=== PATIENT | female | born 1955 | race Caucasian/White ===

== ENCOUNTER → 2019-04-21 09:29 | Outpatient (CLI) | payer MEDICARE, OTHER, SELFPAY ==
--- NOTE | 2019-04-21 | DI.MG.S_ITS ---
BILATERAL DIGITAL SCREENING MAMMOGRAM 3D/2D WITH CAD: 04/21/2019 CLINICAL: Routine screening. Comparison is made to exams dated: 03/12/2018 mammogram, 12/23/2016 mammogram, and 01/02/2016 mammogram - [facility]. The tissue of both breasts is heterogeneously dense. This may lower the sensitivity of mammography. Current study was also evaluated with a Computer Aided Detection (CAD) system. No significant masses, calcifications, or other findings are seen in either breast. There has been no significant interval change. IMPRESSION: NEGATIVE There is no mammographic evidence of malignancy. A 1 year screening mammogram is recommended. This exam was interpreted at Station ID: [id number]. NOTE: For mammograms, a report in lay terms will be sent to the patient. Approximately 15% of breast malignancies will not be visualized mammographically. In the management of a palpable breast mass, a negative mammogram must not discourage biopsy of a clinically suspicious lesion. Electronically Signed By: Shena langford/alireza:04/21/2019 10:01:13 letter sent: Normal Exam ACR BI-RADS Category 1: Negative 3341F
== END ==
PROVIDERS: PCP Internal Medicine; Referring Provider Internal Medicine; Visit Provider Internal Medicine
DX: Z12.31 Encounter for screening mammogram for malignant neoplasm of breast (principal)
CPT/HCPCS: 77063; 77067

== ENCOUNTER 2019-10-23 20:24 | Emergency (ER) | payer MEDICARE, OTHER, SELFPAY ==
[2019-10-23 20:25] VITALS: BP 179/79; PULSE 75; RESP 14; TEMP 36.6; O2SAT 97; BMI 32.1
--- NOTE | 2019-10-23 20:35 | PC.NURSE ---
Pt arrives with paper towel/applying pressure to right index finger. Removed paper towels and laceration is on lower part of index finger, sub cutaneous tissue visible. 4x4 given to pt to replace paper towel. Pt able to move finger, reports some tingling present when pressure applied.
--- NOTE | 2019-10-23 20:43 | ED.WOUNDLAC ---
HPI - Wound/Laceration General Chief Complaint: Wound/Laceration Stated Complaint: cut her index finger right hand Time Seen by Provider: 10/23/19 20:37 Source: patient Mode of arrival: Ambulatory Limitations: no limitations History of Present Illness HPI narrative: 64-year-old female nonsmoker with noncontributory medical history presents with her in the chief complaint of an accidental laceration to the flexor surface of her right index finger just prior to arrival. She states there has been a fair amount of bleeding which she denies any numbness or weakness. She was handling a glass bowl when it shattered and lacerated her finger. She denies other injury. She denies any foreign body. She states her tetanus is current. Onset (ago): hour(s) Place: home Patient tetanus UTD: Yes Context: accidental Associated symptoms: pain Related Data Allergies Allergy/AdvReac Type Severity Reaction Status Date / Time No Known Drug Allergies Allergy Verified 10/23/19 20:29 Review of Systems Review of Systems Narrative: GENERAL: Denies chills, fatigue, malaise, fever, sweats. HEENT: Denies sinus pain, ear pain, sore throat, difficulty swallowing, dizziness. RESPIRATORY: Denies dyspnea, cough, wheezing, hemoptysis, sputum. CARDIOVASCULAR: Denies chest pain, palpitations, orthopnea, edema, GASTROINTESTINAL: Denies nausea, vomiting, abdominal pain, diarrhea, constipation, melena. : Denies dysuria, frequency, incontinence, hematuria, urinary retention. MUSCULOSKELETAL: denies weakness, joint pain, or bony pain SKIN: Admits to laceration Denies rash, skin lesions, or other NEUROLOGIC: Denies weakness, headache, numbness, change in speech, confusion, seizures, incoordination. PSYCHIATRIC: No concerning psychosocial issues. 12 point review of systems is negative except for those stated above Patient History Social History Smoking Status: Unknown if ever smoked Smoking Status: Unknown if ever smoked alcohol intake frequency: holidays/special occasions only Substance Use Type: does not use Exam Narrative Exam Narrative: GEN: AOx3 and in mild distress EYES: Pupils are equal, round, and reactive to light and accommodation. Extraoccular muscles are intact bilaterally. There is no subconjunctival hemorrhage or exudate. CHEST: Lungs are clear to auscultation bilaterally and free of wheezes, rales, or rhonchi. Heart rate is regular rhythm, there are no murmurs, clicks, rubs, or gallops. There is no chest wall tenderness. ABD: Abdomen is soft and nontender. There is no guarding or rebound. Bowel sounds are normal in all 4 quadrants. There is no mass or organomegaly. EXT: Full painless ROM of all extremities with no loss of sensation or strength. SKIN: 2.5 cm longitudinally oriented laceration the flexor surface of the right index finger. No loss of strength, no arterial component. Visualized in a bloodless field and no obvious tendon involvement noted. Otherwise Warm, pink, and dry. No erythema or rash Initial Vital Signs Initial Vital Signs: Vital Signs Temperature 97.9 F 10/23/19 20:25 Pulse Rate 75 10/23/19 20:25 Respiratory Rate 14 10/23/19 20:25 Blood Pressure 179/79 H 10/23/19 20:25 Pulse Oximetry 97 10/23/19 20:25 Procedures Laceration Repair Laceration 1: Side (If applicable): right Size (cm): 2.5 Description: linear Depth: simple, single layer Pre-repair: wound explored, irrigated extensively and deep structures intact Skin layer closed with: nylon Size (cm): 5-0 Number of sutures: 5 Technique: simple, interrupted Nerve Block Nerve Block 1: Time out performed: Yes Local Anesthetic: lidocaine 1% and with bicarb Amount of anesthesia used (mL): 4 Side: right Nerve Blocks: digital Procedure Successful: Yes Patient Tolerated Procedure: Well Complications: none Course Orders Ordered: Discontinued Medications Lidocaine/Sodium Bicarbonate (Buffered Lidocaine 10 Ml Syr) 10 ml INJ NOW ONE Stop: 10/23/19 20:50 Last Admin: 10/23/19 20:54 Dose: 10 ml Documented by: CAMILLE Vital Signs Vital signs: Vital Signs - 8 hr 10/23/19 20:25 10/23/19 21:49 Temperature 97.9 F Pulse Rate 75 86 Respiratory Rate 14 Blood Pressure 179/79 H Pulse Oximetry 97 99 Discharge Plan Departure Patient Disposition: Home Clinical Impression: Laceration of right index finger Qualifiers: Encounter type: initial encounter Damage to nail status: without damage Foreign body presence: without foreign body Qualified Code(s): S61.210A - Laceration without foreign body of right index finger without damage to nail, initial encounter Discharge Date/Time: 10/23/19 21:50 Instructions: DI for Laceration Repair Activity Restrictions/Additional Instructions: Please keep the wound clean and dry to the best of your ability. Please monitor for signs of infection such as redness to the skin or increasing pain. Have the sutures removed by your doctor in about 7 days. If you are unable to get into your doctor, we would be happy to remove the sutures in that same timeframe. Referrals: Brianna Raman [Primary Care Provider] -
[2019-10-23] MEDS: LIDO 1%/SOD BICARB 8.4% (10ML) 10 ML SYRINGE INJ (20:54)
[2019-10-23 21:49] VITALS: PULSE 86; O2SAT 99
== END 2019-10-23 21:50 | disposition home or self-care (01) ==
PROVIDERS: Emergency Provider Emergency Medicine; PCP Internal Medicine
DX: S61.210A Laceration without foreign body of right index finger without damage to nail, initial encounter (principal); W25.XXXA Contact with sharp glass, initial encounter
CPT/HCPCS: 12001; 64450; 99283

== ENCOUNTER → 2020-11-18 12:53 | Outpatient (CLI) | payer MEDICARE, OTHER, SELFPAY ==
--- NOTE | 2020-11-18 | DI.MG.S_ITS ---
BILATERAL DIGITAL SCREENING MAMMOGRAM 3D/2D WITH CAD: 11/18/2020 CLINICAL: Routine screening. Comparison is made to exams dated: 04/21/2019 mammogram - [facility], 03/12/2018 mammogram, and 12/23/2016 mammogram - [facility]. The tissue of both breasts is heterogeneously dense. This may lower the sensitivity of mammography. Current study was also evaluated with a Computer Aided Detection (CAD) system. No significant masses, calcifications, or other findings are seen in either breast. There has been no significant interval change. IMPRESSION: NEGATIVE There is no mammographic evidence of malignancy. A 1 year screening mammogram is recommended. This exam was interpreted at Station ID: [id number]. NOTE: For mammograms, a report in lay terms will be sent to the patient. Approximately 15% of breast malignancies will not be visualized mammographically. In the management of a palpable breast mass, a negative mammogram must not discourage biopsy of a clinically suspicious lesion. Electronically Signed By: Ad ang/alireza:11/20/2020 08:10:48 letter sent: Normal Exam ACR BI-RADS Category 1: Negative 3341F
== END ==
PROVIDERS: PCP Internal Medicine; Referring Provider Internal Medicine; Visit Provider Internal Medicine
DX: Z12.31 Encounter for screening mammogram for malignant neoplasm of breast (principal)
CPT/HCPCS: 77063; 77067

== ENCOUNTER → 2021-12-20 10:48 | Outpatient (CLI) | payer MEDICARE, OTHER, SELFPAY ==
--- NOTE | 2021-12-20 | DI.MG.S_ITS ---
BILATERAL DIGITAL SCREENING MAMMOGRAM 3D/2D WITH CAD: 12/20/2021 CLINICAL: Routine screening. Comparison is made to exams dated: 11/18/2020 mammogram, 04/21/2019 mammogram - [facility], and 03/12/2018 mammogram - [facility]. Both breasts are heterogeneously dense, which may obscure small masses (category c / 51-75% glandular tissue). Current study was also evaluated with a Computer Aided Detection (CAD) system. No significant masses, calcifications, or other findings are seen in either breast. There has been no significant interval change. IMPRESSION: NEGATIVE There is no mammographic evidence of malignancy. A 1 year screening mammogram is recommended. Based on the Tyrer Cuzick model (a risk assessment model) the patient's lifetime risk is 13.7% and her 10 year risk is 7.7%. According to the ACR, ACS, and NCCN guidelines, an annual breast MRI exam along with mammogram is recommended if the patient's lifetime risk is 20% or greater. This exam was interpreted at Station ID: [id number]. NOTE: For mammograms, a report in lay terms will be sent to the patient. Approximately 15% of breast malignancies will not be visualized mammographically. In the management of a palpable breast mass, a negative mammogram must not discourage biopsy of a clinically suspicious lesion. Electronically Signed By: Emmanuel Swain M.D., jr/alireza:12/20/2021 18:11:50 letter sent: Normal Exam ACR BI-RADS Category 1: Negative 3341F
== END ==
PROVIDERS: Referring Provider Internal Medicine; Visit Provider Internal Medicine
DX: Z12.31 Encounter for screening mammogram for malignant neoplasm of breast (principal)
CPT/HCPCS: 77063; 77067

== ENCOUNTER → 2023-02-24 11:39 | Outpatient (CLI) | payer MEDICARE, OTHER, SELFPAY ==
--- NOTE | 2023-02-24 11:41 | DI.MG.S_ITS ---
BILATERAL DIGITAL SCREENING MAMMOGRAM 3D/2D WITH CAD: 02/24/2023 CLINICAL: Routine screening. Comparison is made to exams dated: 12/20/2021 mammogram, 11/18/2020 mammogram, and 04/21/2019 mammogram - [facility]. Both breasts are heterogeneously dense, which may obscure small masses (category c / 51-75% glandular tissue). Current study was also evaluated with a Computer Aided Detection (CAD) system. There are benign calcifications in both breasts. No significant masses, calcifications, or other findings are seen in either breast. There has been no significant interval change. IMPRESSION: BENIGN There is no mammographic evidence of malignancy. A 1 year screening mammogram is recommended. Based on the Tyrer Cuzick model (a risk assessment model) the patient's lifetime risk is 12.3% and her 10 year risk is 7.9%. According to the ACR, ACS, and NCCN guidelines, an annual breast MRI exam along with mammogram is recommended if the patient's lifetime risk is 20% or greater. This exam was interpreted at Station ID: [id number]. NOTE: For mammograms, a report in lay terms will be sent to the patient. Approximately 15% of breast malignancies will not be visualized mammographically. In the management of a palpable breast mass, a negative mammogram must not discourage biopsy of a clinically suspicious lesion. Electronically Signed By: Shena langford/alireza:02/24/2023 14:45:44 letter sent: Normal Exam ACR BI-RADS Category 2: Benign Finding(s) 3342F
== END ==
PROVIDERS: Referring Provider Internal Medicine; Visit Provider Internal Medicine
DX: Z12.31 Encounter for screening mammogram for malignant neoplasm of breast (principal); R92.333 Mammographic heterogeneous density, bilateral breasts
CPT/HCPCS: 77063; 77067

== ENCOUNTER → 2023-08-19 | Outpatient (CLI) | payer MEDICARE, OTHER, SELFPAY ==
--- NOTE | 2023-08-19 14:57 | DI.MRI.S_ITS ---
PROCEDURE: MR KNEE RT WO CON INDICATIONS: Pain in right knee TECHNIQUE: Noncontrast sagittal PD fast spin echo and T2 fast spin echo with fat saturation, sagittal 3-D FLASH with fat saturation; coronal T1 spin echo and PD fast spin echo with fat saturation, and axial PD fast spin echo with fat saturation through the knee. COMPARISON: [facility], CR, XR KNEE ARTHRITIC SERIES RT, 08/14/2023, 11:04. FINDINGS: Image quality: Excellent. Menisci: There is a radial tear of the lateral meniscus at the posterior horn/posterior body junction (8/20). The medial meniscus is intact. The posterior root attachment are within normal limits. Cruciate ligaments: The anterior and posterior cruciate ligaments appear intact. Medial structures: The medial collateral ligament appears intact. The posterior oblique ligament, semimembranosus tendon insertions, oblique popliteal ligament, and meniscocapsular junction appear intact. Visualized portions of the pes anserinus tendons appear normal. No abnormal bursal fluid. Lateral structures: The lateral collateral ligament, long and short heads of the biceps femoris tendon appear intact. The popliteus tendon appears normal; the popliteofibular ligament appears intact. The posterosuperior and anteroinferior popliteomeniscal fascicles appear intact. The arcuate and fabellofibular ligaments appear intact, on either side of the lateral inferior geniculate artery. Iliotibial band appears normal. Anterior structures: There is mild quadriceps tendinosis. The patellar tendon is preserved. Patellar alignment is normal. No femoral trochlear dysplasia. No edema in the infrapatellar fat pad. Bones and cartilage: The marrow signal is within normal limits. No acute fracture or dislocation. Areas of near full thickness cartilage loss are present in the weight-bearing medial compartment (8/19). Areas of partial thickness chondral loss are present in the lateral weight-bearing compartment (8/20). He resume near full-thickness chondral loss and delamination are present in the patellofemoral compartment, notably at the lateral aspect (3/11). Joint space: Mild tricompartmental joint space narrowing and osteophyte formation. Trace joint effusion. Moderate 7.4 cm multiloculated Gómez's cyst without evidence of leakage (5/24). No large intra-articular bodies. Other: Multiple varicose veins are present. IMPRESSION: 1. 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 2. Radial tear of the lateral meniscus at the posterior horn/posterior body junction. 3. Mild quadriceps tendinosis. Dictated by: Bhaskar Paul M.D. on 08/19/2023 at 17:10 Approved by: Bhaskar Paul M.D. on 08/19/2023 at 17:21
== END ==
PROVIDERS: Referring Provider Nurse Practitioner Family; Visit Provider Nurse Practitioner Family
DX: S83.281A Other tear of lateral meniscus, current injury, right knee, initial encounter (principal); M25.561 Pain in right knee
CPT/HCPCS: 73721

== ENCOUNTER → 2024-03-02 16:09 | Outpatient (CLI) | payer MEDICARE, OTHER, SELFPAY ==
--- NOTE | 2024-03-02 16:13 | DI.MG.S_ITS ---
BILATERAL DIGITAL SCREENING MAMMOGRAM 3D/2D WITH CAD: 03/02/2024 CLINICAL: Routine screening. Comparison is made to exams dated: 02/24/2023 mammogram, 12/20/2021 mammogram, and 11/18/2020 mammogram - [facility]. The breasts are heterogeneously dense, which may obscure small masses (category c / 51-75% glandular tissue). Current study was also evaluated with a Computer Aided Detection (CAD) system. There are benign calcifications in both breasts. No significant masses, calcifications, or other findings are seen in either breast. There has been no significant interval change. IMPRESSION: BENIGN There is no mammographic evidence of malignancy. A 1 year screening mammogram is recommended. Based on the Tyrer Cuzick model (a risk assessment model) the patient's lifetime risk is 11.7% and her 10 year risk is 8.1%. According to the ACR, ACS, and NCCN guidelines, an annual breast MRI exam along with mammogram is recommended if the patient's lifetime risk is 20% or greater. This exam was interpreted at Station ID: [id number]. NOTE: For mammograms, a report in lay terms will be sent to the patient. Approximately 15% of breast malignancies will not be visualized mammographically. In the management of a palpable breast mass, a negative mammogram must not discourage biopsy of a clinically suspicious lesion. Electronically Signed By: Guanakito sena/alireza:03/04/2024 14:43:17 letter sent: Normal Exam ACR BI-RADS Category 2: Benign
== END ==
DX: Z12.31 Encounter for screening mammogram for malignant neoplasm of breast (principal); R92.333 Mammographic heterogeneous density, bilateral breasts
CPT/HCPCS: 77063; 77067

== ENCOUNTER → 2024-03-12 12:52 | Outpatient (CLI) | payer MEDICARE, OTHER, SELFPAY ==
--- NOTE | 2024-03-12 12:53 | DI.RAD.S_ITS ---
PROCEDURE: XR DEXA AXIAL SKELETON INDICATIONS: OSTEOPOROSIS SCREENING COMPARISON: None. FINDINGS: Lumbar Spine: Bone mineral density 1.143 g/cm2, T score 0.9, previously 0. Left Femoral Neck: Bone mineral density 0.778 g/cm2, T score -0.6. Left Hip: Bone mineral density 0.961 g/cm2, T score 0.2, previously -0.7. Fracture Risk Calculation (when applicable): Not reported due to normal bone mineralization. (T score greater or equal to -1.0 to: NORMAL) (T score from -1.1 to -2.4: OSTEOPENIA) (T score less than or equal to -2.5: OSTEOPOROSIS) IMPRESSION: Normal bone mineralization. Follow-up guidelines as follows: Osteoporosis: Consider a repeat DEXA and Vertebral Fracture Assessment (VFA) exam in 2 years or sooner if medically necessary, to reassess this patient's status. Osteopenia: Consider a repeat DEXA in 2-3 years to reassess this patient's status, or if there is a new clinical indication. Normal: Consider a repeat DEXA in 5 years or sooner, or if there is a new clinical indication. All treatment decisions require clinical judgment and consideration of individual patient factors, including patient preferences, comorbidities, previous drug use, risk factors not captured in the FRAX model (e.g., frailty, falls, vitamin D deficiency, increased bone turnover, interval significant decline in bone density ) and possible under- or over-estimation of fracture risk by FRAX. In addition, the NOF Guide recommends that FDA-approved medical therapies be considered in postmenopausal women and men age >= 50 years with a: * Hip or vertebral (clinical or morphometric) fracture * T-score of <=-2.5 at the spine or hip * Ten-year fracture probability by FRAX of >= 3% for hip fracture or >=20% for major osteoporotic fracture. Dictated by: Jan Tee M.D. on 03/12/2024 at 15:57 Approved by: Jan Tee M.D. on 03/12/2024 at 16:16
== END ==
PROVIDERS: Referring Provider Nurse Practitioner Family; Visit Provider Nurse Practitioner Family
DX: Z78.0 Asymptomatic menopausal state (principal)
CPT/HCPCS: 77080

== ENCOUNTER 2024-05-10 12:55 | Emergency (ER) | payer MEDICARE, OTHER, SELFPAY ==
[2024-05-10 13:21] VITALS: BP 160/76; PULSE 75; RESP 16; TEMP 37.2; O2SAT 95; BMI 26.4
--- NOTE | 2024-05-10 13:50 | ED_ITS ---
HPI - Wound/Laceration <Isabelle Trejo PA-C - Last Filed: 05/10/24 14:12> General Chief Complaint: Wound/Laceration Stated Complaint: leg laceration Time Seen by Provider: 05/10/24 13:18 Source: patient and family Mode of arrival: Ambulatory History of Present Illness HPI narrative: 69-year-old female presents to the ED status post a ai to the skin with a razor sustained just prior to arrival. Patient states she has had varicose veins for several years, has several times nicked a vein from shaving. Patient was shaving her legs earlier today, when she hit a very superficial vein. Patient was able to put pressure on it and applied an knod-kwr-jzgmriz clotting powder called bleeds. Which did stop the bleeding. Patient is on aspirin, no blood thinners. No chest pain, shortness of breath, fever, chills, lightheadedness, dizziness, syncope. Related Data Allergies Allergy/AdvReac Type Severity Reaction Status Date / Time No Known Drug Allergies Allergy Verified 10/23/19 20:29 Review of Systems <Isabelle Trejo PA-C - Last Filed: 05/10/24 14:12> Constitutional Constitutional: Denies chills, Denies fatigue, Denies fever(s), Denies frequent falls, Denies lethargy and Denies weakness Eyes Eyes: Denies change in vision, Denies eye discharge, Denies irritation and Denies loss of vision ENT Ears, Nose, Mouth, and Throat: Denies change in voice, Denies dizziness, Denies neck pain, Denies sore throat and Denies throat swelling Cardiovascular Cardiovascular: Denies chest pain, Denies irregular heart rhythm, Denies lightheadedness, Denies palpitations, Denies dyspnea, Denies dyspnea on exertion and Denies orthopnea Respiratory Respiratory: Denies cough, Denies dyspnea, Denies dyspnea on exertion and Denies wheezing Gastrointestinal Gastrointestinal: Denies abdominal pain, Denies change in bowel habits, Denies diarrhea, Denies nausea and Denies vomiting Musculoskeletal Musculoskeletal: Denies neck pain and Denies numbness Integumentary/Breasts Skin/Breast: Denies pruritus, Denies erythema, Denies rash and Reports wounds Neurologic Neurologic: Denies behavioral changes, Denies confusion, Denies dizziness, Denies frequent falls, Denies loss of vision, Denies numbness and Denies weakness Psychiatric Psychiatric: Denies anxiety, Denies behavioral changes, Denies confusion, Denies depression, Denies homicidal ideation and Denies suicidal ideation Endocrine Endocrine: Denies fatigue, Denies flushing and Denies palpitations Hematologic/Lymphatic Hematologic/Lymphatic: Denies easy bruising Allergic/Immunologic Allergic/Immunologic: Denies urticaria, Denies throat swelling and Denies wheezing Patient History <Isabelle Trejo PA-C - Last Filed: 05/10/24 14:12> Social History Smoking Status: Never smoker Smoking Status: Never smoker alcohol intake frequency: holidays/special occasions only Alcohol type: wine Exam <Isabelle Trejo PA-C - Last Filed: 05/10/24 14:12> Narrative Exam Narrative: Const General:?cooperative, healthy appearing and comfortable [facility] Head:?normal to inspection Ears:?hearing grossly normal bilaterally Nose:?external nose normal Face and sinus:?normal facial exam and sinuses nontender Mouth:?oral mucosae normal Throat:?posterior oropharynx normal Eyes General:?appearance normal, both eyes and all related structures Neck Neck:?normal visual inspection and no lymphadenopathy noted Resp Effort & Inspection:?normal respiratory effort Auscultation:?clear to auscultation bilaterally Cardio Rate:?regular rate Rhythm:?regular rhythm Integumentary There is a small ai from a razor on the left lower thigh, which is covered with an bubv-tir-pckqsim bleed. Clotting powder. It is not actively bleeding. No swelling, hematoma. Neurovascularly intact. Neuro General:?patient alert, patient awake and patient oriented x3 Initial Vital Signs Initial Vital Signs: Vital Signs Temperature 99 F 05/10/24 13:21 Pulse Rate 75 05/10/24 13:21 Respiratory Rate 16 05/10/24 13:21 Blood Pressure 160/76 H 05/10/24 13:21 Pulse Oximetry 95 05/10/24 13:21 Oxygen Delivery Method Room Air 05/10/24 13:21 <Dinorah Mathis DO - Last Filed: 05/12/24 23:23> Initial Vital Signs Initial Vital Signs: Vital Signs Temperature 99 F 05/10/24 13:21 Pulse Rate 75 05/10/24 13:21 Respiratory Rate 16 05/10/24 13:21 Blood Pressure 160/76 H 05/10/24 13:21 Pulse Oximetry 95 05/10/24 13:21 Oxygen Delivery Method Room Air 05/10/24 13:21 Course <Isabelle Trejo PA-C - Last Filed: 05/10/24 14:12> Vital Signs Vital signs: Vital Signs - 8 hr 05/10/24 13:21 Temperature 99 F Pulse Rate 75 Respiratory Rate 16 Blood Pressure 160/76 H Pulse Oximetry 95 Oxygen Delivery Method Room Air <Dinorah Mathis DO - Last Filed: 05/12/24 23:23> Vital Signs Vital signs: Vital Signs - 8 hr 05/10/24 13:21 Temperature 99 F Pulse Rate 75 Respiratory Rate 16 Blood Pressure 160/76 H Pulse Oximetry 95 Oxygen Delivery Method Room Air MDM - Wound/Laceration <Isabelle Trejo PA-C - Last Filed: 05/10/24 14:12> MDM Narrative Medical decision making narrative: 69-year-old female presents to the ED status post a ai to the skin with a razor sustained just prior to arrival. Physical exam is reassuring for no active bleeding. The clotting powder seems to be in place and has control the bleeding. No hematoma noted under the skin. No signs of active bleeding. No other interventions are indicated at this time. Patient is wound has been covered with a nonstick and pressure dressing with Coban. Patient is sent home with Surgicel and glue in the event that she has a rebleed. ED return precautions were discussed with patient. Patient verbalized understanding. Medical records reviewed: Yes Discharge Plan Departure Patient Disposition: Home Clinical Impression: Superficial laceration Instructions: DI for Minor Laceration Activity Restrictions/Additional Instructions: You were evaluated in the ED today for a minor laceration. It appears that the bleeding is under control with the gpcc-cbv-yptmijw bleeds to up clotting powder that you have applied. No further intervention is indicated at this time. You are being sent home with some Surgicel and glue to use in case the wound starts bleeding again. Return to the ED if you note any signs of infection or your symptoms worsen. Referrals: ProviderBrando [Primary Care Provider] - Stand Alone Forms: Patient Portal/API/Survey ED Sign-out <DO Deb Spencer Last Filed: 05/12/24 23:23> Cosign ED Attending Cosignature Attestation: I was available for consultation.
--- NOTE | 2024-05-10 14:02 | PC.NURSE ---
Per Provider Neil, the plan is to keep the clotting foam on the wound that the patient applied prior to arrival. She gave the patient surgicel gauze and coban as well in case it opens up and begins bleeding again. No further action needed at this time/
== END 2024-05-10 14:14 | disposition home or self-care (01) ==
PROVIDERS: Emergency Provider Student in an Organized Health Care Education/Training Program
DX: S71.112A Laceration without foreign body, left thigh, initial encounter (principal); I83.92 Asymptomatic varicose veins of left lower extremity; W26.8XXA Contact with other sharp object(s), not elsewhere classified, initial encounter
CPT/HCPCS: 99282